=== PATIENT | male | born 1970 | race Two or more races ===

== ENCOUNTER 2023-11-16 11:51 | Emergency (ER) | payer OTHER ==
[~2023-11-16] VITALS: Ht 177.8 cm; Wt 108.9 kg
[2023-11-16 11:58] VITALS: BP 126/68; PULSE 109; RESP 18; TEMP 98.5; O2SAT 97
[2023-11-16 12:28] LABS: BASOPHILS % (AUTO) 0.2 % (0.0-2.0); EOSINOPHILS % (AUTO) 0.1 % (0.0-4.0); HEMATOCRIT 42.2 % (36-52); HEMOGLOBIN 14.5 g/dL (12.0-18.0); LYMPHOCYTES # (AUTO) 1.3 K/uL (2.0-11.5); MEAN CORPUSCULAR HEMOGLOBIN 29 pg (27-31); MEAN CORPUSCULAR HGB CONC 34 g/dL (33-37); MEAN CORPUSCULAR VOLUME 84.6 fL (80-94); MONOCYTES # (AUTO) 1.4 K/uL (0.8-1.0); MONOCYTES % (AUTO) 8.8 % (1.7-9.3); NEUTROPHILS # (AUTO) 13.1 K/uL (1.8-7.7); NEUTROPHILS % (AUTO) 82.9 % (42.2-75.2); PLATELET COUNT (AUTO) 87 K/uL (140-450); RED BLOOD CELL COUNT(AUTO) 4.99 MIL/uL (4.20-6.10); RED CELL DISTRIBUTION WIDTH 15.7 % (11.6-13.7); WHITE BLOOD COUNT (AUTO) 15.8 K/uL (4.8-10.8)
[2023-11-16 12:41] VITALS: O2SAT 97
[2023-11-16 12:46] LABS: INR 1.12 (0.8-1.2); PROTHROMBIN TIME 11.7 secs (10.8-13.4)
[2023-11-16 12:48] LABS: ALBUMIN 3.3 g/dL (3.4-5.0); ANION GAP 13.5 (8-16); CALCIUM 8.8 mg/dL (8.5-10.1); CARBON DIOXIDE 21.3 mmol/L (21-32); CREATININE 0.8 mg/dL (0.6-1.3); POTASSIUM 3.8 mmol/L (3.5-5.1); TOTAL BILIRUBIN 0.8 mg/dL (0.0-1.0); TOTAL PROTEIN, SERUM 7.5 g/dL (6.4-8.2)
[2023-11-16] MEDS: ACETAMINOPHEN EXTRA STRENGTH 500 MG TAB PO ONE (13:26)
[2023-11-16] MEDS: PANTOPRAZOLE 40 MG INJ VIAL IVP ONE (13:33)
[2023-11-16] MEDS: ONDANSETRON 4 MG/2 ML VIAL IVP ONE (13:33)
[2023-11-16 13:51] LABS: APPEARANCE,URINE CLEAR (CLEAR); BILIRUBIN,URINE 1+ (NEGATIVE); BLOOD, URINE TRACE-I (NEGATIVE); COLOR,URINE YELLOW (YELLOW); LEUKOCYTE ESTERASE ,URINE 2+ (NEGATIVE); NITRITE, URINE NEGATIVE (NEGATIVE); PH,URINE 7.5 (5.0-9.0); PROTEIN,URINE TRACE (NEGATIVE); UGLUCOSE NEGATIVE (NEGATIVE)
[2023-11-16 13:59] LABS: ICTOTEST NEGATIVE (NEGATIVE)
[2023-11-16 14:00] LABS: BACTERIA,URINE 10-30 (MOD) /HPF (None Seen); RBC,URINE 0-5 /HPF (0-5); SQUAMOUS EPITHELIAL CELL,UR 0-3 (FEW) /LPF (0-3 (FEW))
[2023-11-16] MEDS ORDERED: CIPR500T4 PO (14:16)
[2023-11-16 14:26] VITALS: BP 121/64; PULSE 109; RESP 18; TEMP 98.5; O2SAT 97
[2023-11-16 15:26] LABS: FLU A ANTIGEN negative (NEGATIVE); FLU B ANTIGEN NEGATIVE (NEGATIVE)
== END 2023-11-16 14:31 | disposition home or self-care (01) ==
LOC: MED 11:51
DX: K92.1 Melena (principal); N39.0 Urinary tract infection, site not specified; D72.829 Elevated white blood cell count, unspecified; Z20.822 Contact with and (suspected) exposure to COVID-19; K21.9 Gastro-esophageal reflux disease without esophagitis; Z79.2 Long term (current) use of antibiotics
CPT/HCPCS: 36415; 80053; 81001; 85025; 85610; 85730; 86886; 86900; 86901; 87086; 87186; 87426; 87804; 93005; 96374; 96375; 99284; C9113; J2405

== ENCOUNTER 2024-05-08 09:12 | Day surgery (SDC) | payer OTHER ==
[~2024-05-08] VITALS: Ht 177.8 cm; Wt 104.3 kg
[~2024-05-08 09:12] MED LIST: CIPR500T4 PO
[2024-05-08] MEDS ORDERED: fentaNYL citrate 0.05 MG/ML VIAL ONE (10:24)
[2024-05-08] MEDS ORDERED: MIDAZOLAM 5 MG/5 ML VIAL ONE (10:25)
[2024-05-08] MEDS: MIDAZOLAM 5 MG/5 ML VIAL IV ONE (10:29)
[2024-05-08] MEDS: fentaNYL citrate 0.05 MG/ML VIAL IVP ONE (10:30)
[2024-05-08] MEDS: LIDOCAINE 2% 100 MG/5 ML UJET TP ONE (10:40)
[2024-05-08] MEDS ORDERED: GLUCAGON 1 MG VIAL ONE (11:48)
== END 2024-05-08 12:58 | disposition home or self-care (01) ==
LOC: MDS 09:12 → MMU 09:16 → MDS 12:58
PROVIDERS: ATTEND Internal Medicine Gastroenterology
DX: K92.1 Melena (principal); K21.9 Gastro-esophageal reflux disease without esophagitis; K70.9 Alcoholic liver disease, unspecified; K57.30 Diverticulosis of large intestine without perforation or abscess without bleeding; K63.5 Polyp of colon; K64.4 Residual hemorrhoidal skin tags; K63.89 Other specified diseases of intestine; K44.9 Diaphragmatic hernia without obstruction or gangrene; Z79.899 Other long term (current) drug therapy
CPT/HCPCS: 43235; 45385; 82948; J1610; J2250; J3010